=== PATIENT | male | born 1965 | race Caucasian/White ===

== ENCOUNTER → 2024-08-30 | Outpatient (CLI) | payer MEDICAID, SELFPAY ==
--- NOTE | 2024-08-30 14:09 | RAD_ITS ---
PROCEDURE: ELBOW MIN 3 VIEWS 08/30/2024 REASON FOR EXAM: PAIN IN RIGHT ELBOW TECHNIQUE: 3 views of the right COMPARISON: None available FINDINGS: No fracture, dislocation or joint effusion identified. There is obliquity on the lateral view. Radiolucency suggested within the olecranon with consideration including possibility of unicameral bone cyst with metastatic disease or process such as multiple myeloma not entirely excluded, correlate with history. No aggressive appearing features are identified. Small enthesophyte formation at the olecranon. External joint osteoarthrosis. Possible tiny intra-articular osseous body central joint. RAD/Elbow min 3 Views IMPRESSION: No fracture, dislocation or joint effusion identified. There is obliquity on the lateral view. Radiolucency suggested within the olec ranon with consideration including possibility of unicameral bone cyst with metastatic disease or process such as multiple myelom a not entirely excluded, correlate with history. No aggressive appearing features are identified. Reading Location: [id number]
--- NOTE | 2024-08-30 14:10 | RAD_ITS ---
PROCEDURE: KNEE 3 VIEWS 08/30/2024 REASON FOR EXAM: PAIN IN LEFT KNEE TECHNIQUE: 3 view(s) of the left knee COMPARISON: None available FINDINGS: No fracture, dislocation or joint effusion. The joint spaces appear within limits. Areas of fairly mild marginal osteophyte spur formation. No osseous lesion identified. RAD/Knee 3 Views IMPRESSION: No fracture, dislocation or joint effusion. Reading Location: [id number]
[2024-08-30 16:50] LABS: Absolute Lymphocyte Count 2.75 X10^3/uL (0.83-4.51); Absolute Neutrophil Count 4.9 X10^3/uL (2.0-7.7); Basophil# 0.07 X10^3/uL; Basophil% 0.8 % (0-1); Eosinophil# 0.06 X10^3/uL; Eosinophils% 0.7 % (0-5); Hematocrit 36.4 % (40-54); Hemoglobin 12.8 g/dL (13.0-16.5); Lymphocyte # 2.75 X10^3/ul (0.83-4.51); Lymphocyte % 32.1 % (19-41); Mean Corp Hgb Conc 35.2 g/dL (32-36); Mean Corpuscular Volume 88.1 fL (80-94); Mean Platelet Vol. 9.6 fl (6.2-12.0); Monocyte# 0.73 X10^3/uL; Monocyte% 8.5 % (0-10); NRBC Flagged by Analyzer 0 % (0-5); Neutrophil # 4.93 X10^3/uL (2.7-7.7); Neutrophil % 57.5 % (47-70); Platelet Count 236 K/mm3 (150-450); RBC Distribution Width CV 13.2 % (11.6-14.6); RBC Distribution Width SD 42.4 fl (35.1-43.9); Red Blood Count 4.13 M/mm3 (4.6-6.2); White Blood Count 8.6 K/mm3 (4.4-11.0)
[2024-08-30 18:03] LABS: ALB/GLOB Ratio 1.5 RATIO (0.9-2.4); AST(SGOT) 21 U/L (<=37); Alanine Aminotransfer ALT/SGPT 18 U/L (<=46); Albumin, Serum 4.4 g/dL (3.5-5.0); Alkaline Phosphatase 74 U/L (40-129); Anion Gap 13 (5-15); BUN 14 mg/dL (4-19); BUN/Creat Ratio 17.2 RATIO (10-20); Calcium,Total 9.9 mg/dL (7.6-11.0); Carbon Dioxide 20.8 mmol/L (21.0-32.0); Chloride 105 mmol/L (98-108); Cholesterol 164 mg/dL (<=200); EST Glomerular Filtration Rate 103 (>60); Globulin 2.8 g/dL (2.2-4.2); Glucose 95 mg/dL (70-99); High Density Lipoprotein 49 mg/dL; Low Density Lipoprotein Calc. 83 mg/dL; Potassium 4.3 mmol/L (3.3-5.1); Protein, Total 7.2 g/dL (5.9-8.4); Sodium Level 138 mmol/L (133-145); Total Bilirubin 0.19 mg/dL (0.00-1.30); Triglycerides 157 mg/dL; Very Low Density Lipoprotein 31 mg/dL (5-40); cholesterol:hdl ratio screen 3.32
[2024-08-30 19:47] LABS: Hemoglobin A1c 5.5 % (<=5.6)
== END | disposition home or self-care (01) ==
DX: I10 Essential (primary) hypertension (principal); M25.521 Pain in right elbow; M25.562 Pain in left knee; Z13.1 Encounter for screening for diabetes mellitus; Z13.220 Encounter for screening for lipoid disorders
CPT/HCPCS: 36415; 73080; 73562; 80053; 80061; 83036; 84443; 85025